=== PATIENT | male | born 1940 ===

== ENCOUNTER 2020-01-25 07:38 | Day surgery (SDC) | payer OTHER | END 2020-01-25 12:35 | disposition home or self-care (01) | LOC: AMB-ENDOS 07:38 | PROVIDERS: ATTEND Colon & Rectal Surgery | DX: D12.3 Benign neoplasm of transverse colon (principal); Z20.828 Contact with and (suspected) exposure to other viral communicable diseases; K64.1 Second degree hemorrhoids ==

== ENCOUNTER 2022-04-08 09:14 | Outpatient (CLI) | payer OTHER | END 2022-04-08 09:19 | disposition home or self-care (01) | LOC: SONOGRAMA 09:14 | PROVIDERS: ATTEND Pathology Anatomic Pathology & Clinical Pathology | DX: D34 Benign neoplasm of thyroid gland (principal); E04.9 Nontoxic goiter, unspecified; E04.1 Nontoxic single thyroid nodule ==